=== PATIENT | male | born 1955 | race African-American/Black ===

== ENCOUNTER 2023-01-09 14:34 | Emergency (ER) | payer MEDICARE, MEDICAID, SELFPAY ==
--- NOTE | ~2023-01-09 | XR_ITS ---
EXAMINATION: XR CHEST CLINICAL INFORMATION: Shortness of breath COMPARISON: None available. TECHNIQUE: 2 views of the chest were obtained. FINDINGS: The cardiac silhouette does not appear enlarged. Hilar and mediastinal contours are unremarkable. The lungs are clear. No pleural effusion or pneumothorax. Bony structures are unremarkable. XR/XR chest 2V IMPRESSION: No evidence for acute disease in the chest.
--- NOTE | 2023-01-09 14:41 | ED_ITS ---
HPI - SOB/Dyspnea General Chief Complaint: Extremity Problem Stated Complaint: swelling in both feet, congested Time Seen by Provider: 01/09/23 16:39 Source: patient and RN notes reviewed Mode of arrival: ambulatory Limitations: no limitations History of Present Illness HPI Narrative: This is a 67-year-old male, with a past medical history of hypertension with cardiac stent, presenting to the emergency department for evaluation of bilateral lower extremity swelling for the last week. He states that he previously was on diuretics which he discontinued 1 year ago as he thought he did not need them anymore. He states that typically the swelling in his legs improved at bedtime however he has noticed that this has not resolved. He admits to having some shortness of breath upon ambulation. He has a history of chronic bronchitis has a chronic cough, reports that this has been unchanged. Patient denies any fevers, chills, chest pain, palpitations, abdominal pain, nausea, vomiting, or diarrhea. He has no known history of congestive heart failure. He has a history of IV drug use however has not used drugs in over 1 year. No history of blood clots. No recent hospitalizations, travel, cancer history. No other complaints or concerns this time. MD elicited complaint: shortness of breath Onset (ago): week(s) Context: occurred during exertion Timing: constant Severity: moderate Exacerbating factors: exertion Relieving factors: nothing Known history of: COPD Associated symptoms: denies other symptoms Treatment prior to arrival: none Related Data Allergies Allergy/AdvReac Type Severity Reaction Status Date / Time No Known Allergies Allergy Verified 01/09/23 14:43 Review of Systems Review of Systems: Constitutional: No Weight loss, No Fever, No Chills, No Night Sweats, No Fatigue, No Malaise ENT/Mouth: No Hearing loss, No Ear Pain, No Nasal Congestion, No Sinus Pain, No Hoarseness, No sore throat, No Rhinorrhea, No Swallowing Difficulty Eyes: No Eye Pain, No Swelling, No Redness, No Foreign Body, No Discharge, No Vision Changes Cardiovascular: No Chest Pain, No SOB, + Dyspnea on Exertion, No Orthopnea, No Edema, No Palpitations Respiratory: No Cough, No Sputum, No Wheezing, No Smoke Exposure, No Dyspnea Gastrointestinal: No Nausea, No Vomiting, No Diarrhea, No Constipation, No Abdominal pain, No Hematochezia, No Melena Genitourinary: No irregular bleeding, No Dysuria, No Urinary Frequency, No Hematuria, No Urinary Incontinence/retention, No Urgency, No Flank Pain, No Urinary Flow Changes, No Hesitancy Musculoskeletal: No joint pain, No Myalgias, No Joint Swelling Skin: No Skin Lesions, No rash Neuro: No Weakness, No Numbness, No Paresthesias, No Loss of Consciousness, No Dizziness, No Headache Psych: No Anxiety/Panic, No Depression, No SI/HI/AH/VH, No Social Issues, Heme/Lymph: No Bruising, No Bleeding,No Lymphadenopathy Endocrine: No Polyuria, No Polydipsia, No Temperature Intolerance Yes all other systems are reviewed and are negative Constitutional: Constitutional: Reports as per [facility] Social History Social History Advance Directives: Yes Advance Directives on File: No Physical Exam Vital Signs: Vital Signs: Last Vital Signs Temp 98.6 F 01/09/23 17:52 Pulse 59 01/09/23 17:52 Resp 12 01/09/23 17:52 BP 133/87 01/09/23 17:52 Pulse Ox 98 01/09/23 17:52 O2 Del Method Room Air 01/09/23 17:52 BMI result Body Mass Index 27.9 Const: General: cooperative, comfortable and no acute distress [place] ation/consciousness: patient oriented x3 Limitations: no limitations HEENT: Head: Yes normal to inspection, Yes normocephalic and Yes atraumatic Ears: hearing grossly normal bilaterally General nose exam: Normal external nose present Face and sinus: Yes normal facial exam Mouth: Normal oral and palatal mucosa present, oropharynx normal and moist mucous membranes Throat: Yes posterior oropharynx normal Eyes: General: appearance normal, both eyes and all related structures Eyelids: Yes eyelids normal Conjunctivae: conjunctivae normal Sclerae: sclerae normal Pupils: Equal, round and reactive pupils present EOM: EOMs intact bilaterally Neck: Neck: Yes normal visual inspection, Yes full ROM and Yes no lymphadenopathy Lymphatic: no lymphadenopathy noted Chest: Chest palpation & inspection: normal inspection of the chest Resp: Effort & Inspection: normal respiratory effort and able to speak in complete sentences Auscultation: clear to auscultation bilaterally, no crackles, no rales, no rhonchi and no wheezes Cardio: Rate: regular rate Rhythm: regular rhythm Heart sounds: S1 normal heart sound present and S2 normal heart sound present GI: Inspection: Yes normal to inspection Skin: General skin exam: no rashes or lesions noted Trauma: no lacerations or abrasions Wounds: no wounds Neuro: General: patient oriented x3 and moves all extremities Cranial nerves: Yes Equal, round and reactive pupils present Extrem: Other: Bilateral 2+ pitting edema noted. No erythema. No calf tenderness, no palpable cords. General: Yes normal to inspection Right upper extremity: normal to inspection Left upper extremity: normal to inspection Right lower extremity: normal to inspection Left lower extremity: normal to inspection Course Course Course Narrative: This is a rapid medical exam. Deferred additional HPI, ROS, PE to primary provider. 67 yo male with history of CAD s/p stents, HTN here with complaints of shortness of breath, bilateral leg swelling x several weeks. No chest pain, fever. Cough with clear sputum. +smoker Bilateral LE pitting edema R/L, mild exp wheezing Will need labs, EKG, CXR VSS Reevaluation(s) Reevaluation #1: Patient has no leukocytosis, EKG reassuring,, BMP negative, chest x-ray unremarkable. Advised patient to follow-up with primary care physician to start back on diuretics and fluid. Will place patient's legs and Flo wraps to help with swelling, educated the importance of keeping legs elevated as much as possible to help reduce swelling. Given return precautions any new or worsening symptoms occur. Patient understands and agrees with plan. Vital signs have remained stable throughout his entire stay. Oxygen saturation 98% room air. He has no chest pressure pain. Patient stable for discharge. Time: 18:16 Medical Decision Making Medical Decision Making [facility] Narrative: This is a 67-year-old male, with a past medical history of cardiac stent and hypertension, presenting to the emergency department for evaluation of lower extremity swelling for the last week. He has a history of this and was previously on diuretics unsure of the name but he discontinued this about 1 year ago. On examination, patient has 2+ pitting edema noted bilaterally with no calf tenderness. Patient has no Tonio is, BMP within normal limits, creatinine 1.55 of her no previous creatinine to compare to. Chest x-ray is unremarkable. EKG normal sinus rhythm with occasional PVCs. No ST elevation or depression. Plan: Check labs, EKG Differential Diagnosis Differential Diagnoses: The differential diagnosis associated with the presentation includes Peripheral edema, CHF, ACS-less likely, DVT less likely Admission/Observation Consideration of admission/observation: Escalation of care including admission/observation considered Lab Data MDM Lab Attestation statement: I reviewed the patient's lab results. 01/09/23 14:55 01/09/23 14:55 Labs: Lab Results 01/09/23 01/09/23 01/09/23 Range/Units 14:55 14:55 14:55 WBC 6.7 (4.8-10.8) X10*3/uL RBC 5.47 (4.60-5.80) X10*6/uL Hgb 15.2 (14.0-18.0) g/dl Hct 45.5 (42.0-52.0) % MCV 83.2 (80.0-98.0) fL MCH 27.8 (27.0-33.0) pg MCHC 33.4 (31.0-36.0) g/dl RDW 13.2 (11.0-16.0) % Plt Count 217 (160-400) X10*3/uL MPV 10.2 (9.4-12.4) fL Immature Gran % (Auto) 0.3 (0.0-0.4) % Neut % (Auto) 39.9 L (45-73) % Lymph % (Auto) 42.9 H (20-40) % Hettinger % (Auto) 12.0 H (2-11) % Eos % (Auto) 3.8 (0-4) % Baso % (Auto) 1.1 (0-2) % Lymph # (Auto) 2.9 (1.2-4.9) X10*3/uL Hettinger # (Auto) 0.8 (0.1-1.2) X10*3/uL Eos # (Auto) 0.3 (0.0-0.4) X10*3/uL Baso # (Auto) 0.1 (0.0-0.2) X10*3/uL Abs Immat Gran (auto) 0.02 (0.00-0.03) X10*3/uL Absolute Neuts (auto) 2.7 (2.0-8.3) x10*3/uL Absolute Nucleated RBC 0.000 (0.0-0.012) X10*3/uL Nucleated RBC % (auto) 0.0 (0.0-0.2) /100WBC PT (10.0-13.1) SEC INR (0.9-1.1) Sodium 140 (135-145) mmol/L Potassium 4.1 (3.3-5.1) mmol/L Chloride 104 (96-108) mmol/L Carbon Dioxide 26 (22-29) mmol/L Anion Gap 14 (12-20) BUN 10 (9-16) mg/dL Creatinine 1.55 H (0.5-1.4) mg/dL Estim Creat Clear Calc 45.8 Estimated GFR 45 Random Glucose 98 (60-115) mg/dL Calcium 9.6 (8.4-10.2) mg/dL Magnesium 2.2 (1.6-2.6) mg/dL Total Bilirubin 0.5 (0.0-1.0) mg/dL Direct Bilirubin 0.1 (0.0-0.5) mg/dL AST 14 (5-37) U/L ALT 14 (0-40) U/L Alkaline Phosphatase 125 H (39-117) U/L Troponin I High Sens < 2.7 (<3.5-35.0) ng/L B-Natriuretic Peptide (<100) pg/mL Total Protein 7.4 (6.5-8.0) g/dL Albumin 4.1 (3.5-5.0) g/dL 01/09/23 01/09/23 Range/Units 14:55 14:55 WBC (4.8-10.8) X10*3/uL RBC (4.60-5.80) X10*6/uL Hgb (14.0-18.0) g/dl Hct (42.0-52.0) % MCV (80.0-98.0) fL MCH (27.0-33.0) pg MCHC (31.0-36.0) g/dl RDW (11.0-16.0) % Plt Count (160-400) X10*3/uL MPV (9.4-12.4) fL Immature Gran % (Auto) (0.0-0.4) % Neut % (Auto) (45-73) % Lymph % (Auto) (20-40) % Hettinger % (Auto) (2-11) % Eos % (Auto) (0-4) % Baso % (Auto) (0-2) % Lymph # (Auto) (1.2-4.9) X10*3/uL Hetting[place] # (Auto) (0.1-1.2) X10*3/uL Eos # (Auto) (0.0-0.4) X10*3/uL Baso # (Auto) (0.0-0.2) X10*3/uL Abs Immat Gran (auto) (0.00-0.03) X10*3/uL Absolute Neuts (auto) (2.0-8.3) x10*3/uL Absolute Nucleated RBC (0.0-0.012) X10*3/uL Nucleated RBC % (auto) (0.0-0.2) /100WBC PT 13.7 H (10.0-13.1) SEC INR 1.2 H (0.9-1.1) Sodium (135-145) mmol/L Potassium (3.3-5.1) mmol/L Chloride (96-108) mmol/L Carbon Dioxide (22-29) mmol/L Anion Gap (12-20) BUN (9-16) mg/dL Creatinine (0.5-1.4) mg/dL Estim Creat Clear Calc Estimated GFR Random Glucose (60-115) mg/dL Calcium (8.4-10.2) mg/dL Magnesium (1.6-2.6) mg/dL Total Bilirubin (0.0-1.0) mg/dL Direct Bilirubin (0.0-0.5) mg/dL AST (5-37) U/L ALT (0-40) U/L Alkaline Phosphatase (39-117) U/L Troponin I High Sens (<3.5-35.0) ng/L B-Natriuretic Peptide < 10 (<100) pg/mL Total Protein (6.5-8.0) g/dL Albumin (3.5-5.0) g/dL Radiology Impression Discussion of test interpretation with radiology: I have reviewed the radiologist's reading. External Record Review External record reviewed: Inpatient record, Office record, Outpatient record, Prior outpatient labs, Prior outpatient radiology, Primary care record and [facility] ED record Discharge Plan Discharge Clinical Impression: Lower extremity edema Patient Disposition: Home, Self-Care Instructions: Edema (ED) Additional Instructions: Your workup was reassuring today. Please follow-up with your primary care physician regarding this visit. Use compression socks and elevate your legs as much as possible. If any new or worsening symptoms occur, including chest pain, worsening shortness of breath, calf pain or worsening swelling, please return for re- evaluation.
[2023-01-09 14:42] VITALS: BP 152/88; PULSE 61; RESP 16; TEMP 36.8; O2SAT 98; BMI 27.9
--- NOTE | 2023-01-09 14:43 | ECG_ITS ---
Test Reason : SOB Blood Pressure : / mmHG Vent. Rate : 064 BPM Atrial Rate : 064 BPM P-R Int : 176 ms QRS Dur : 088 ms QT Int : 398 ms P-R-T Axes : 033 010 026 degrees QTc Int : 410 ms Sinus rhythm with occasional Premature ventricular complexes Otherwise normal ECG No previous ECGs available Referred By: Cady Mckeon Electronically Signed By:MAME TUCKER MD
[2023-01-09 15:01] LABS: MANUAL DIFF FLAG NO
[2023-01-09 15:02] LABS: Basophils Absolute Auto 0.1 X10*3/uL (0.0-0.2); Basophils Percent Auto 1.1 % (0-2); Eosinophils Absolute Auto 0.3 X10*3/uL (0.0-0.4); Eosinophils Percent Auto 3.8 % (0-4); Hematocrit 45.5 % (42.0-52.0); Hemoglobin 15.2 g/dl (14.0-18.0); Imm Gran Abs Auto 0.02 X10*3/uL (0.00-0.03); Imm Gran Pct Auto 0.3 % (0.0-0.4); Lymphocytes Absolute Auto 2.9 X10*3/uL (1.2-4.9); Lymphocytes Percent Auto 42.9 % (20-40); Mean Corpuscular HGB Conc 33.4 g/dl (31.0-36.0); Mean Corpuscular Hemoglobin 27.8 pg (27.0-33.0); Mean Corpuscular Volume 83.2 fL (80.0-98.0); Mean Platelet Volume 10.2 fL (9.4-12.4); Monocytes Absolute Auto 0.8 X10*3/uL (0.1-1.2); Neutrophils Absolute Auto 2.7 x10*3/uL (2.0-8.3); Neutrophils Percent Auto 39.9 % (45-73); Platelet Count 217 X10*3/uL (160-400); Red Blood Count 5.47 X10*6/uL (4.60-5.80); Red Cell Distribution Width 13.2 % (11.0-16.0); White Blood Count 6.7 X10*3/uL (4.8-10.8)
[2023-01-09 15:15] LABS: INTERNATIONAL NORM RATIO 1.2 (0.9-1.1); Prothrombin Time 13.7 SEC (10.0-13.1)
[2023-01-09 15:28] LABS: Alanine Aminotransferase 14 U/L (0-40); Albumin Level 4.1 g/dL (3.5-5.0); Alkaline Phosphatase 125 U/L (39-117); Anion Gap 14 (12-20); Aspartate Amino Transferase 14 U/L (5-37); Bilirubin Direct 0.1 mg/dL (0.0-0.5); Bilirubin Total 0.5 mg/dL (0.0-1.0); Blood Urea Nitrogen 10 mg/dL (9-16); Calcium 9.6 mg/dL (8.4-10.2); Carbon Dioxide 26 mmol/L (22-29); Chloride 104 mmol/L (96-108); Creatinine Clr Calc Pharmacy 45.8; Estimated Glomerular Filt Rate 45; Glucose Random 98 mg/dL (60-115); Magnesium 2.2 mg/dL (1.6-2.6); Potassium 4.1 mmol/L (3.3-5.1); Sodium 140 mmol/L (135-145); Total Protein 7.4 g/dL (6.5-8.0)
[2023-01-09 15:34] LABS: B Type Natriuretic Peptide < 10 pg/mL (<100)
[2023-01-09 15:42] LABS: Troponin-I High Sensitivity < 2.7 ng/L (<3.5-35.0)
[2023-01-09 16:52] VITALS: BP 148/82; PULSE 58; RESP 20; TEMP 36.6; O2SAT 99
[2023-01-09 17:52] VITALS: BP 133/87; PULSE 59; RESP 12; TEMP 37; O2SAT 98
== END 2023-01-09 18:43 | disposition home or self-care (01) ==
PROVIDERS: Nurse Practitioner Family; Emergency Provider Student in an Organized Health Care Education/Training Program; PCP Family Medicine
DX: R06.02 Shortness of breath (principal); R60.0 Localized edema; R94.31 Abnormal electrocardiogram [ECG] [EKG]; Z79.899 Other long term (current) drug therapy
CPT/HCPCS: 36415; 71046; 80048; 80076; 83735; 83880; 84484; 85025; 85610; 93005; 99283; 99284

== ENCOUNTER 2023-08-28 09:20 | Outpatient (AMB) | payer MEDICARE, MEDICAID, SELFPAY ==
[2023-08-28 09:24] VITALS: BP 110/70; PULSE 63; O2SAT 98; BMI 25.4
--- NOTE | 2023-08-28 09:24 | A.OFFVIS_ITS ---
Intake Vital Signs 08/28/23 09:24 Height 5 ft 7 in Weight 162 lb 0.636 oz BMI 25.4 BP 110/70 Blood Pressure Location Lt brachial Position Sitting Pulse 63 Pulse Source Pulse Oximeter Pulse Oximetry (%) 98 Oxygen Delivery Method Room Air Intake Visit Reasons: mild chronic obstructive pulmonary disease Intake Note: pt is here as a new patient, he is feeling good, cutting down on smoking Ironing Pleater Required: No Allergies No Known Allergies Allergy (Verified 08/28/23 09:26) HPI mild chronic obstructive pulmonary disease HPI Details 68-year-old gentleman, active 30+ pack-y ear smoker with underlying COPD of unclear severity currently on Anoro and albuterol MDI referred for pulmonary follow-up. Patient complains of dyspnea on exertion when walking uphill or with stairs, or with prolonged walking on level ground. He denies cough, wheezing, sputum production. He does have underlying lower extremity edema at this time controlled on hydrochlorothiazide. And AFib on Eliquis and Toprol XL. Patient denies family history of lung disease. He denies history of exposure to industrial dusts. His CT scan from April of 2023 demonstrates stable 4 mm and under pulmonary nodules. [facility] Social History (Updated 08/28/23 @ 09:28 by Brenna Walters Will) Patient Tobacco Use Status: Current everyday Tobacco user Cigarettes Per Day: 3 Review of Systems Const Denies daytime sleepiness, Denies excessive sweating, Denies fatigue, Denies fever(s), Denies lethargy, Denies malaise, Denies night sweats, Denies snoring and Denies weight loss Eyes Denies blurry vision and Denies itchy eyes ENT Denies nasal congestion, Denies post nasal drip, Denies sinus pain, Denies sinus pressure and Denies other ( Thrush) Card Denies chest pain, Denies pedal edema, Denies dyspnea, Reports dyspnea on exertion, Denies orthopnea and Denies paroxysmal nocturnal dyspnea Resp Denies cough, Denies hemoptysis, Denies excessive phlegm production, Denies dyspnea, Reports dyspnea on exertion, Denies snoring and Denies wheezing GI Denies abdominal pain and Denies heartburn Musc Denies myalgias, Denies arthralgias and Denies joint swelling Skin/Breast Denies rash Neuro Denies memory loss and Denies seizure-like activity Psych Denies abnormal sleep pattern, Denies anxiety and Denies memory loss Endo Denies excessive sweating, Denies fatigue and Denies heat intolerance Jerry/Lymph Denies easy bruising Aller/Immun Denies itchy eyes, Denies seasonal rhinorrhea and Denies wheezing Physical Exam Vital Signs: Last Vital Signs Pulse 63 08/28/23 09:24 BP 110/70 08/28/23 09:24 Pulse Ox 98 08/28/23 09:24 Oxygen Delivery Method Room Air 08/28/23 09:24 BMI result Body Mass Index 25.4 Const General: no acute distress and alert Nutritional Appearance: not obese Orientation/consciousness: Other orientation findings ( oriented) HEENT Head: Yes atraumatic Eyes General: appearance normal, both eyes and all related structures Sclerae: sclerae normal EOM: EOMs intact bilaterally Neck Neck: Yes supple Lymphatic: no lymphadenopathy noted Resp Effort & Inspection: normal respiratory effort and no use of accessory muscles Auscultation: clear to auscultation bilaterally Cardio Rate: regular rate Rhythm: regular rhythm Heart sounds: no gallops, no murmurs and no rubs Skin General skin exam: other ( warm) Extrem General: No clubbing, No cyanosis and No edema Assessment & Plan Assessment & Plan (1) Dyspnea on exertion: Code(s): R06.09 - Other forms of dyspnea Plan: Likely multifactorial with contribution from underlying pulmonary and cardiac etiologies. Patient states that he did have an echocardiogram within last 3-4 months. Will request results. (2) Personal history of nicotine dependence: Code(s): Z87.891 - Personal history of nicotine dependence Plan: Patient has lost lung cancer screening CT chest was in the summer of 2022. Will require follow-up CT chest in the summer. (3) COPD (chronic obstructive pulmonary disease): Code(s): J44.9 - Chronic obstructive pulmonary disease, unspecified Plan: Unclear severity. Will obtain full PFT at this time on Anoro and albuterol MDI. Will continue until results of PFT are available. Orders: Orders PFT pulmonary function test Today J44.9 - Chronic obstructive pulmonary disease, unspecified Coding Level of Care Code New Pt Level 4 (90225) Diagnoses Dyspnea on exertion R06.09 Personal history of nicotine dependence Z87.891 COPD (chronic obstructive pulmonary disease) J44.9
== END 2023-08-28 09:35 | disposition home or self-care (01) ==
PROVIDERS: PCP Family Medicine; Visit Provider Internal Medicine Pulmonary Disease
DX: R06.09 Other forms of dyspnea (principal); Z87.891 Personal history of nicotine dependence; J44.9 Chronic obstructive pulmonary disease, unspecified
CPT/HCPCS: 99204

== ENCOUNTER → 2023-08-28 09:20 | Outpatient (BNVA) | payer MEDICARE, MEDICAID, SELFPAY | PROVIDERS: PCP Family Medicine; Visit Provider Internal Medicine Pulmonary Disease | DX: J44.9 Chronic obstructive pulmonary disease, unspecified (principal); R06.09 Other forms of dyspnea; Z87.891 Personal history of nicotine dependence | CPT/HCPCS: 99202 ==

== ENCOUNTER 2023-09-25 09:43 | Outpatient (REF) | payer MEDICARE, MEDICAID, SELFPAY ==
--- NOTE | 2023-09-25 11:29 | PFT_ITS ---
Flows: FEV1: 93 % of predicted at 2.31 L FVC: 102 % of predicted at 3.30 L FEV1/FVC: 70 % Bronchodilator response: Present in small to medium airways only. Volumes: No lung volume measurements available secondary to a technical issue. Diffusion capacity: Normal Impression: Mild obstructive ventilatory defect with bronchodilator response in small to medium airways only. No lung volume measurements available secondary to a technical issue. MTDD
[2023-09-25 11:46] VITALS: PULSE 70; RESP 16; O2SAT 98
== END 2023-09-25 09:44 | disposition home or self-care (01) ==
LOC: HO.RESP 09:43
PROVIDERS: Visit Provider Internal Medicine Pulmonary Disease
DX: J44.9 Chronic obstructive pulmonary disease, unspecified (principal)
CPT/HCPCS: 94010; 94640; 94727; 94729

== ENCOUNTER → 2023-09-25 11:29 | Outpatient (BNV) | payer MEDICARE, MEDICAID, SELFPAY | PROVIDERS: Visit Provider Internal Medicine Pulmonary Disease | DX: J44.9 Chronic obstructive pulmonary disease, unspecified (principal) | CPT/HCPCS: 94060; 94729 ==

== ENCOUNTER 2023-10-09 09:30 | Outpatient (AMB) | payer MEDICARE, MEDICAID, SELFPAY ==
[2023-10-09 09:32] VITALS: BP 117/62; PULSE 73; O2SAT 96; BMI 26.2
--- NOTE | 2023-10-09 09:32 | A.OFFVIS_ITS ---
Intake Vital Signs 10/09/23 09:32 Height 5 ft 7 in Weight 167 lb 8.821 oz BMI 26.2 BP 117/62 Blood Pressure Location Lt brachial Position Sitting Pulse 73 Pulse Source Doppler Pulse Oximetry (%) 96 Oxygen Delivery Method Room Air Intake Visit Reasons: mild chronic obstructive pulmonary disease Allergies No Known Allergies Allergy (Verified 08/28/23 09:26) HPI mild chronic obstructive pulmonary disease HPI Details 68-year-old gentleman, active 30+ pack-y ear smoker now followed for mild COPD and pulmonary nodules. Patient symptoms are well controlled on Anoro and albuterol MDI. He denies recent exacerbations. [facility] Social History Patient Tobacco Use Status: Current everyday Tobacco user Cigarettes Per Day: 3 Review of Systems Const Denies daytime sleepiness, Denies excessive sweating, Denies fatigue, Denies fever(s), Denies lethargy, Denies malaise, Denies night sweats, Denies snoring and Denies weight loss Eyes Denies blurry vision and Denies itchy eyes ENT Denies nasal congestion, Denies post nasal drip, Denies sinus pain, Denies sinus pressure and Denies other ( Thrush) Card Denies chest pain, Denies pedal edema, Denies dyspnea, Denies orthopnea and Denies paroxysmal nocturnal dyspnea Resp Denies cough, Denies hemoptysis, Denies excessive phlegm production, Denies dyspnea, Denies snoring and Denies wheezing GI Denies abdominal pain and Denies heartburn Musc Denies myalgias, Denies arthralgias and Denies joint swelling Skin/Breast Denies rash Neuro Denies memory loss and Denies seizure-like activity Psych Denies abnormal sleep pattern, Denies anxiety and Denies memory loss Endo Denies excessive sweating, Denies fatigue and Denies heat intolerance Jerry/Lymph Denies easy bruising Aller/Immun Denies itchy eyes, Denies seasonal rhinorrhea and Denies wheezing Physical Exam Vital Signs: Last Vital Signs Pulse 73 10/09/23 09:32 BP 117/62 10/09/23 09:32 Pulse Ox 96 10/09/23 09:32 Oxygen Delivery Method Room Air 10/09/23 09:32 BMI result Body Mass Index 26.2 Const General: no acute distress and alert Nutritional Appearance: not obese Orientation/consciousness: Other orientation findings ( oriented) HEENT Head: Yes atraumatic Eyes General: appearance normal, both eyes and all related structures Sclerae: sclerae normal EOM: EOMs intact bilaterally Neck Neck: Yes supple Lymphatic: no lymphadenopathy noted Resp Effort & Inspection: normal respiratory effort and no use of accessory muscles Auscultation: clear to auscultation bilaterally Cardio Rate: regular rate Rhythm: regular rhythm Heart sounds: no gallops, no murmurs and no rubs Skin General skin exam: other ( warm) Extrem General: No clubbing, No cyanosis and No edema Assessment & Plan Assessment & Plan (1) COPD (chronic obstructive pulmonary disease): Code(s): J44.9 - Chronic obstructive pulmonary disease, unspecified Plan: Results of pulmonary function test reviewed. Underlying mild COPD now well controlled on Anoro and albuterol MDI. Continue current regimen. (2) Personal history of nicotine dependence: Code(s): Z87.891 - Personal history of nicotine dependence Plan: Follow-up lung cancer screening CT chest is scheduled for April of 2024. Orders: Orders CT lung screening 05/10/24 Z87.891 - Personal history of nicotine dependence Coding Level of Care Code Est Pt Level 4 (35573) Diagnoses COPD (chronic obstructive pulmonary disease) J44.9 Personal history of nicotine dependence Z87.891
== END 2023-10-09 09:47 | disposition home or self-care (01) ==
PROVIDERS: PCP Family Medicine; Visit Provider Internal Medicine Pulmonary Disease
DX: J44.9 Chronic obstructive pulmonary disease, unspecified (principal); Z87.891 Personal history of nicotine dependence
CPT/HCPCS: 99214

== ENCOUNTER → 2023-10-09 09:30 | Outpatient (BNVA) | payer MEDICARE, MEDICAID, SELFPAY | PROVIDERS: PCP Family Medicine; Visit Provider Internal Medicine Pulmonary Disease | DX: J44.9 Chronic obstructive pulmonary disease, unspecified (principal); Z87.891 Personal history of nicotine dependence | CPT/HCPCS: 99212 ==

== ENCOUNTER 2024-05-26 12:47 | Outpatient (REF) | payer MEDICARE, MEDICAID, SELFPAY | END 2024-05-26 12:48 | disposition home or self-care (01) | LOC: HO.CT 12:47 | PROVIDERS: PCP Family Medicine; Visit Provider Internal Medicine Pulmonary Disease | DX: Z12.2 Encounter for screening for malignant neoplasm of respiratory organs (principal); Z87.891 Personal history of nicotine dependence | CPT/HCPCS: 71271 ==

== ENCOUNTER → 2024-05-26 12:48 | Outpatient (BNV) | payer MEDICARE, MEDICAID, SELFPAY | PROVIDERS: PCP Family Medicine; Visit Provider Radiology Diagnostic Radiology | DX: Z12.2 Encounter for screening for malignant neoplasm of respiratory organs (principal); F17.210 Nicotine dependence, cigarettes, uncomplicated | CPT/HCPCS: 71271 ==

== ENCOUNTER 2024-06-16 13:24 | Outpatient (AMB) | payer MEDICARE, MEDICAID, SELFPAY ==
[2024-06-16 13:30] VITALS: BP 128/62; PULSE 62; O2SAT 96; BMI 25.5
--- NOTE | 2024-06-16 13:30 | MHC.OFFVIS ---
Vital Signs 06/16/24 13:30 Height 5 ft 7 in Weight 163 lb 2.273 oz BMI 25.5 BP 128/62 Blood Pressure Location Rt brachial Position Sitting Pulse 62 Pulse Source Doppler Pulse Oximetry (%) 96 Oxygen Delivery Method Room Air Intake Visit Reasons: COPD Allergies No Known Allergies Allergy (Verified 08/28/23 09:26) HPI HPI COPD: Details: 69-year-old gentleman, active 30+ pack-year smoker now followed for mild COPD and pulmonary nodules. Patient symptoms are well controlled on Anoro and albuterol MDI. He denies recent exacerbations. His lung cancer screening CT chest results are not available, but on my review left upper lobe 7 mm nodule. [facility] Social History Patient Tobacco Use Status: Current everyday Tobacco user Cigarettes Per Day: 3 Review of Systems Const Denies daytime sleepiness, Denies excessive sweating, Denies fatigue, Denies fever(s), Denies lethargy, Denies malaise, Denies night sweats, Denies snoring and Denies weight loss Eyes Denies blurry vision and Denies itchy eyes ENT Denies nasal congestion, Denies post nasal drip, Denies sinus pain, Denies sinus pressure and Denies other ( Thrush) Card Denies chest pain, Denies pedal edema, Denies dyspnea, Denies orthopnea and Denies paroxysmal nocturnal dyspnea Resp Denies cough, Denies hemoptysis, Denies excessive phlegm production, Denies dyspnea, Denies snoring and Denies wheezing GI Denies abdominal pain and Denies heartburn Musc Denies myalgias, Denies arthralgias and Denies joint swelling Skin/Breast Denies rash Neuro Denies memory loss and Denies seizure-like activity Psych Denies abnormal sleep pattern, Denies anxiety and Denies memory loss Endo Denies excessive sweating, Denies fatigue and Denies heat intolerance Jerry/Lymph Denies easy bruising Aller/Immun Denies itchy eyes, Denies seasonal rhinorrhea and Denies wheezing Physical Exam Vital Signs: Last Vital Signs Pulse 62 06/16/24 13:30 BP 128/62 06/16/24 13:30 Pulse Ox 96 06/16/24 13:30 Oxygen Delivery Method Room Air 06/16/24 13:30 BMI result Body Mass Index 25.5 Const General: no acute distress and alert Nutritional Appearance: not obese Orientation/consciousness: Other orientation findings ( oriented) HEENT Head: Yes atraumatic Eyes General: appearance normal, both eyes and all related structures Sclerae: sclerae normal EOM: EOMs intact bilaterally Neck Neck: Yes supple Lymphatic: no lymphadenopathy noted Resp Effort & Inspection: normal respiratory effort and no use of accessory muscles Auscultation: clear to auscultation bilaterally Cardio Rate: regular rate Rhythm: regular rhythm Heart sounds: no gallops, no murmurs and no rubs Skin General skin exam: other ( warm) Extrem General: No clubbing, No cyanosis and No edema Assessment & Plan Assessment & Plan (1) COPD (chronic obstructive pulmonary disease): Code(s): J44.9 - Chronic obstructive pulmonary disease, unspecified Category: Medical Plan: Well controlled on Anoro and albuterol MDI. Continue current regimen. (2) Pulmonary nodule: Code(s): R91.1 - Solitary pulmonary nodule Category: Medical Plan: Results of lung cancer screening CT chest not available for this visit. On my review left upper lobe 7 mm nodule. Will repeat CT chest in 6 months. Orders: Orders CT chest wo IV con 12/04/24 R91.1 - Solitary pulmonary nodule Coding Level of Care Code Est Pt Level 4 (39842) Complex EM visit Add On G2211 Diagnoses COPD (chronic obstructive pulmonary disease) J44.9 Pulmonary nodule R91.1
== END 2024-06-16 13:45 | disposition home or self-care (01) ==
PROVIDERS: PCP Family Medicine; Visit Provider Internal Medicine Pulmonary Disease
DX: J44.9 Chronic obstructive pulmonary disease, unspecified (principal); R91.1 Solitary pulmonary nodule
CPT/HCPCS: 99214; G2211

== ENCOUNTER → 2024-06-16 13:24 | Outpatient (BNVA) | payer MEDICARE, MEDICAID, SELFPAY | PROVIDERS: PCP Family Medicine; Visit Provider Internal Medicine Pulmonary Disease | DX: J44.9 Chronic obstructive pulmonary disease, unspecified (principal); R91.1 Solitary pulmonary nodule | CPT/HCPCS: 99212 ==

== ENCOUNTER 2024-11-16 09:34 | Outpatient (REF) | payer MEDICARE, MEDICAID, SELFPAY ==
--- OUTSIDE RECORDS SUMMARY | 2024-11-16 10:48 | XMS_ITS | Clinical Summary ---
Author Organization [employer] Address [address] [place] [address] 7 [place] [address] Care Team Providers Care Microsoft Dynamics Manager Architect Name Role Phone Unavailable Primary Care Provider Unavailabl e Social History Tobacco Use Types Packs/Day Years Used Date Smoking Tobacco: Never Assessed Sex and Gender Information Value Date Recorded Sex Assigned at Male 12/15/2023 3:08 PM EDT Legal Sex Male 3:07 PM EDT Gender Identity Male 12/15/2023 3:08 PM EDT Sexual Orientation Not on file Plan of Treatment Health Maintenance Due Date Last Done Comments CT Colonography 1953 Colonoscopy 1953 Colorectal Cancer Screening 1953 Depression Screening 1953 FIT DNA/Cologuard 1953 FIT 1953 FOBT 1953 Lipid Panel 1953 SDOH Screening 1953 Sigmoidoscopy 1953 Alcohol/Substance Use Screening 1965 Tobacco Screening 1965 Hepatitis C Screening 1971 DTaP/Tdap/Td Vaccines (1 - Tdap) 1972 Pneumococcal Vaccine: 50+ Ye ars (1 of 1 - PCV) 2003 Zoster Vaccines (1 of 2) 2003 COVID-19 Vaccine ( - 2023-2 5 season) 2024 Influenza Vaccine (#1) 2024 RSV Patients and Pa tients Aged 60 years or older (1 - 1-dose 75+ series) 2028 HIB Vaccines Aged Out No longer eligi ble based on patient's age to complete this topic HPV Vaccines Aged Out No longer eligi ble based on patient's age to complete this topic Hepatitis A Vaccines Aged Out No long er eligible based on patient's age to complete this topic Hepatitis B Vaccines Aged Out No long er eligible based on patient's age to complete this topic IPV Vaccines Aged Out No longer eligi ble based on patient's age to complete this topic Meningococcal Vaccine Aged Out No anastacia eva eligible based on patient's age to complete this topic RSV under 20 months Aged Out No longe r eligible based on patient's age to complete this topic Rotavirus Vaccines Aged Out No longer eligible based on patient's age to complete this topic
[2024-11-16 11:34] LABS: Prostate Specific Antigen 7.88 ng/mL (<0.05-4.0)
[2024-11-16 11:49] LABS: HIV AB/AG Nonreactive (Nonreactive); HIV Num 1 0.05 S/CO (0.00-0.99); Syphilis Screen Nonreactive (Nonreactive); ~HepC Num1 17.35 S/CO (0.00-0.79); ~Hepatitis C Antibody Reactive (Nonreactive)
== END 2024-11-16 09:35 | disposition home or self-care (01) ==
LOC: HO.LAB 09:34
PROVIDERS: PCP Family Medicine; Visit Provider Family Medicine
DX: Z11.3 Encounter for screening for infections with a predominantly sexual mode of transmission (principal); Z12.5 Encounter for screening for malignant neoplasm of prostate
CPT/HCPCS: 36415; 84153; 86780; 86803; 87389

== ENCOUNTER 2024-12-05 13:59 | Outpatient (REF) | payer MEDICARE, MEDICAID, SELFPAY ==
--- NOTE | ~2024-12-05 | CT_ITS ---
CLINICAL HISTORY: R91.1 - Solitary pulmonary nodule CT chest without contrast Comparison: CT/OH/SR - CT LUNG SCREENING - 05/26/24 12:54 EDT Findings: Normal heart size. Severe coronary artery calcifications. The visualized thyroid and mediastinum are unremarkable. There are multiple tiny pulmonary nodules without significant change. Visualized nodules include a 4 mm left lower lobe nodule on image 29, a 2 mm left upper lobe nodule on image 33, a 2 mm left upper lobe nodule on image 51 and a 2 mm right upper lobe nodule on image 57. There are no new pulmonary nodules. There is no consolidation or pleural effusion. There are mild emphysematous changes. The visualized upper abdomen is unremarkable. There are mild compression fractures at T5 and T6 without change. There is no acute displaced fracture. IMPRESSION: 1. There are multiple tiny pulmonary nodules without change. 2. There is mild pulmonary emphysema. This document has been electronically signed by: Radha Olmos MD on 12/06/2024 15:36:36
== END 2024-12-05 14:00 | disposition home or self-care (01) ==
LOC: HO.CT 13:59
PROVIDERS: PCP Family Medicine; Visit Provider Internal Medicine Pulmonary Disease
DX: R91.1 Solitary pulmonary nodule (principal)
CPT/HCPCS: 71250

== ENCOUNTER → 2024-12-05 14:02 | Outpatient (BNV) | payer MEDICARE, MEDICAID, SELFPAY | PROVIDERS: PCP Family Medicine; Visit Provider Radiology Diagnostic Radiology | DX: R91.1 Solitary pulmonary nodule (principal) | CPT/HCPCS: 71250 ==

== ENCOUNTER 2025-01-20 14:54 | Outpatient (REF) | payer MEDICARE, MEDICAID, SELFPAY ==
--- OUTSIDE RECORDS SUMMARY | 2025-01-20 15:08 | XMS_ITS | Clinical Summary ---
Author Organization [employer] Address [address] [place] [address] Care Team Providers Care Artificial Limb Fitter Name Role Phone Unavailable Primary Care Provider Unavailabl e Encounters Date Type Department Care Team Description 01/13/2025 Patient Outreach [facility] [address] [place] [id number] Truman Storm [facility] Supports 12/02/2024 Patient Outreach [address] [address] Kristin Allan [facility] Recovery Supports 11/25/2024 Patient Outreach [address] [address] Kristin Allan Recovery Supports 11/25/2024 Patient Outreach [address] [address] Quan Mclaughlin RC Recovery Supports from Last 3 Months Social History Tobacco Use Types Packs/Day Years [...] FIT 1953 FOBT 1953 Lipid Panel 1953 Sigmoidoscopy 1953 Alcohol/Substance Use Screening 1965 Tobacco Screening 1965 DTaP/Tdap/Td Vaccines (1 - Tdap) 1972 Pneumococcal Vaccine: 50+ Ye ars (1 of 1 - PCV) 2003 Zoster Vaccines (1 of 2) 2003 COVID-19 Vaccine ( - 2023-2 5 season) 2024 Influenza Vaccine (Season Ended) 2025 RSV Patients and Pa tients Aged 60 [...] patient's age to complete this topic Meningococcal B Vaccine Aged Out No l onger eligible based on patient's age to complete [...]
[2025-01-20 16:17] LABS: Anion Gap 13 (12-20); Blood Urea Nitrogen 13 mg/dL (9-16); Calcium 9.8 mg/dL (8.4-10.2); Carbon Dioxide 26 mmol/L (22-29); Chloride 105 mmol/L (96-108); Estimated Glomerular Filt Rate > 60; Glucose Random 84 mg/dL (60-115); Potassium 4.1 mmol/L (3.3-5.1); Sodium 140 mmol/L (135-145)
[2025-01-20 16:41] LABS: Prostate Specific Antigen 7.92 ng/mL (<0.05-4.0)
[2025-01-23 12:58] LABS: HCV Log PCR <1.18 NOT DETECTED Log IU/mL (NOT DETECTED); HepC Viral Load <15 NOT DETECTED IU/mL (NOT DETECTED)
== END 2025-01-20 14:55 | disposition home or self-care (01) ==
LOC: HO.LAB 14:54
PROVIDERS: PCP Family Medicine; Visit Provider Family Medicine
DX: R97.20 Elevated prostate specific antigen [PSA] (principal); R76.8 Other specified abnormal immunological findings in serum; E87.6 Hypokalemia; Z12.5 Encounter for screening for malignant neoplasm of prostate
CPT/HCPCS: 36415; 80048; 84153; 87522

== ENCOUNTER 2025-04-05 09:57 | Emergency (ER) | payer MEDICARE, MEDICAID, SELFPAY ==
--- NOTE | ~2025-04-05 | XR_ITS ---
EXAMINATION: XR LUMBOSACRAL SPINE CLINICAL INFORMATION: fall out of bed resulting in low back pain COMPARISON: None available. TECHNIQUE: Three views of the lumbosacral spine. FINDINGS: Mild atherosclerotic ossifications are present in the aorta. Mild degenerative changes are present in the right greater than left SI joints. There are 5 nonrib-bearing lumbar segments. L4-5 demonstrates grade 1 anterolisthesis and moderate disc space narrowing and facet sclerosis. L5-S1 demonstrates mild disc space narrowing and mild facet sclerosis. Vertebral body height and alignment is preserved otherwise. XR/XR lumbar spine 2-3V IMPRESSION: Grade 1 anterolisthesis at L4-5 with moderate degenerative disc disease and facet osteoarthritis. L5-S1 demonstrates mild degenerative disc disease and facet osteoarthritis. Electronically signed by: Rogelio Turcios MD 04/05/2025 10:43 AM EDT
--- NOTE | ~2025-04-05 | CT_ITS ---
EXAMINATION: CT CERVICAL SPINE WITHOUT CONTRAST CLINICAL INFORMATION: Status post fall. COMPARISON: None available. TECHNIQUE: Contiguous axial images through the cervical spine using 3 mm collimation with bone and soft tissue algorithm. Sagittal and coronal reformatted images acquired. DLP: 383.[address] examination was performed using dose optimization techniques as appropriate, variously including the following: *Automated exposure control *Adjustment of mA and/or kV according to patient size (this includes techniques or standardized protocols for targeted exams where dose is matched to indication/reason for exam; i.e. extremities or head) *Use of iterative reconstruction technique FINDINGS: Craniocervical junction is intact with normal alignment within the occipital condyles and lateral masses of C1. Degenerative changes in the periodontal C1 region. Multilevel marginal osteophyte formation and endplate sclerosis subchondral cyst formation and decreased intervertebral disc height C3 C7 pronounced at C5-6 and C6-7. There is vacuum phenomenon at C5-6, C6-7 and likely C4-5. Reverse curvature apex at C5. No gross malalignment between the facet joints or the vertebral bodies. C1 is intact. C2 is intact. C3 is intact. C4 is intact. C5 is intact. C6 is intact. C7 is intact. No prevertebral compartment hematoma. Calcified plaques in the carotic arteries. The thyroid gland is not enlarged. Tympanic cavities are aerated. Poor pneumatization of the mastoid air cells. Calcified plaques in the cavernous segments of the ICA. CT/CT cervical spine wo IV con IMPRESSION: Multilevel cervical spondylosis C3 C7 without acute fracture or trauma-related listhesis. Fleischner guidelines were followed. Electronically signed by: Jeison Carlton MD 04/07/2025 11:43 AM EDT
--- NOTE | ~2025-04-05 | CT_ITS ---
EXAMINATION: CT HEAD WITHOUT CONTRAST CLINICAL INFORMATION: fall on thinners/anticoagulant therapy COMPARISON: None available. TECHNIQUE: Contiguous axial imaging was performed from the skull base to vertex without intravenous administration of contrast. This CT examination was performed using dose optimization techniques as appropriate, variously including the following: *Automated exposure control *Adjustment of mA and/or kV according to patient size (this includes techniques or standardized protocols for targeted exams where dose is matched to indication/reason for exam; i.e. extremities or head) *Use of iterative reconstruction technique DLP: 656 mGY*cm FINDINGS: There is no acute ischemic change. There is no intracranial hemorrhage. There is no mass-effect or midline shift. Basal cisterns and ventricles are within normal limits for age/cerebral volume. Orbits are symmetrical and unremarkable. Paranasal sinuses and mastoid air cells are pneumatized. There are no bony abnormalities. CT/CT head/brain wo IV con IMPRESSION: No acute intracranial abnormality. Electronically signed by: Rogelio Turcios MD 04/05/2025 04:03 PM EDT
[2025-04-05 10:09] VITALS: BP 129/72; PULSE 65; RESP 18; TEMP 36.8; O2SAT 97; BMI 25.1
--- NOTE | 2025-04-05 10:13 | ED_ITS ---
HPI - General Adult General Chief complaint: Back Pain/Injury Stated complaint: back inj from ceiling falling in, eye inj? Time Seen by Provider: 04/05/25 11:25 Source: patient Mode of arrival: ambulatory Limitations: no limitations History of Present Illness ED Provider: Lali Aleman PA-C HPI narrative: Patient is a 69 year old assigned male at with a history of COPD, HTN, cardiac stents, on anti-coagulation presenting to the emergency department today with bilateral eye pain and low back pain. Patient states that early this morning a drop ceiling fell onto him and he fell out of bed, injuring his back and his eyes feel as though they are itchy. Patient states that he has known back issues. Patient denies any loss of consciousness with the incident. Patient denies any other complaints at this time. Related Data Home Medications ?Medication ?Instructions ?Recorded ?Confirmed amlodipine 10 mg tablet 10 mg PO DAILY 08/28/23 apixaban 5 mg tablet (Eliquis) 5 mg PO BID 08/28/23 hydrochlorothiazide 25 mg tablet 25 mg PO DAILY metoprolol succinate 25 mg 25 mg PO DAILY 08/28/23 tablet,extended release 24 hr umeclidinium 62.5 mcg-vilanterol 1 ea inhalation DAILY 08/28/23 25 mcg/actuation powdr for inhalation (Anoro Ellipta) Previous Rx's ?Medication ?Instructions ?Recorded erythromycin 5 mg/gram (0.5 %) eye 0.5 inch ophthalmic (eye) Q4H #3.5 04/05/25 ointment grams Allergies Allergy/AdvReac Type Severity Reaction Status Date / Time No Known Allergies Allergy Verified 04/05/25 10:11 Review of Systems Constitutional: Constitutional: Reports as per HPI Eyes: Eyes: Reports as per HPI ENT: Reports as per HPI Cardiovascular: Cardiovascular: Reports as per HPI Respiratory: Respiratory: Reports as per HPI Gastrointestinal: Gastrointestinal: Reports as per HPI Genitourinary: Genitourinary: Reports as per HPI Musculoskeletal: Musculoskeletal: Reports as per HPI Integumentary/Breasts: Skin/Breast: Reports as per HPI Neurologic: Reports as per HPI Psychiatric: Psychiatric: Reports as per HPI Endocrine: Endocrine: Reports as per HPI Hematologic/Lymphatic: Hematologic/Lymphatic: Reports as per HPI Allergic/Immunologic: Allergic/Immunologic: Reports as per HPI [facility] Past Medical History Attestation statement: The following information was validated with the patient. Source: old records reviewed and nursing notes reviewed Social History Social History Patient Tobacco Use Status: Current everyday Tobacco user Cigarettes Per Day: 3 Advance Directives: No Advance Directives Information Provided: Yes Do you have a plan to hurt others: No Plan Physical Exam ED Vital Signs: Vital Signs - 24 hr 04/05/25 10:09 04/05/25 12:10 04/05/25 14:22 Temperature 98.3 F 97.1 F Pulse Rate 65 57 54 Respiratory Rate 18 15 16 Blood Pressure 129/72 129/77 128/79 Pulse Oximetry 97 99 98 Oxygen Delivery Method Room Air Room Air Room Air 04/05/25 16:30 04/05/25 16:34 Temperature 98.3 F 98.3 F Pulse Rate 56 56 Respiratory Rate 16 16 Blood Pressure 146/71 H 146/71 H Pulse Oximetry 96 96 Oxygen Delivery Method Room Air Room Air BMI result Body Mass Index 25.1 Const General: cooperative, no acute distress, alert and awake Nutritional Appearance: well nourished Orientation/consciousness: patient oriented x3 HENMT Head: Yes normal to inspection and Yes atraumatic Ears: hearing grossly normal bilaterally and external ears normal General nose exam: Normal external nose present, no nasal discharge noted and no epistaxis Face and sinus: Yes normal facial exam, No abrasion and No laceration Mouth: Normal oral and palatal mucosa present, no drooling and no muffled voice Eyes Conjunctivae: conjunctival abnormal left conjunctival injection diffuse Pupils: Equal, round and reactive pupils present EOM: EOMs intact bilaterally Neck Neck: Yes normal visual inspection and Yes full ROM Resp Effort & Inspection: normal respiratory effort and able to speak in complete sentences Neuro General: patient oriented x3, moves all extremities and CN's II-XI intact bilaterally Cranial nerves: Yes Equal, round and reactive pupils present Cognition (Neuro): normal cognition Extrem General: Yes normal to inspection, Yes full ROM and Yes capillary refill normal Psych Appearance: grossly normal Mental Status: mental status grossly normal Affect: normal affect Attitude: cooperative Thought process: Normal thought process present Thought content: Normal thought content present Insight: Good insight present (Psych) Course Course Course Narrative: This is a Rapid Medical Examination (RME) performed by Rich Fernández PA-C in triage. Full HPI, ROS, assessment and treatment plan per primary provider in the Main ED. Hx: 69 yo M hx HTN s/p cardiac stent on eliquis here for eval - reports drop ceiling fell last night, causing him to fall out of bed on his right side. no head strike or LOC. reports low back pain. reports FB sensation to L eye. no pain. Plan: imaging, fluorescein/tetracaine/visual acuity Medications Administered Discontinued Medications Generic Name Dose Route Start Last Admin Trade Name Maru PRN Reason Stop Dose Admin Fluorescein Sodium 1 strip 04/05/25 10:10 04/05/25 12:04 Fluorescein Sodium Strip EYE-LEFT 04/05/25 10:11 Not Given ONCE ONE Tetracaine HCl 1 drop 04/05/25 10:10 04/05/25 12:04 Tetracaine Hcl/Pf 0.5% Oph Carmen 4 Ml Drops EYE-LEFT 04/05/25 10:11 Not Given ONCE ONE Medical Decision Making Medical Decision Making MDM Narrative: Patient is a 69 year old assigned male at with a history of COPD, HTN, cardiac stents, on anti-coagulation presenting to the emergency department today with bilateral eye pain and low back pain. Patient's physical exam was as noted in the physical exam portion of this note. Patient's lumbar x-ray showed evidence of chronic degenerative changes. Patient's CT head and c-spine were unremarkable. Patient's clinical presentation is most consistent with acute back pain in the setting of chronic back pain and acute corneal abrasion of the left eye. I explained my physical exam findings as well as all test results to the patient. I answered all questions asked by the patient. I stressed the importance of the patient taking his medication as directed (either prescribed or as the over the counter packaging recommends). I stressed the importance of the patient following up with his primary care provider. I stressed the importance of the patient returning to the emergency department immediately if his symptoms were to worsen or if he were to develop any dizziness, shortness of breath, difficulty breathing, chest pain, blurry vision, loss of vision, nausea, vomiting, abdominal pain, fever, chills, back pain, or any other complaints. Patient verbalized agreement and understanding with this treatment plan and discharge. Differential Diagnosis Differential Diagnoses: The differential diagnosis associated with the presentation includes Corneal abrasion Back pain Admission/Observation Consideration of admission/observation: Escalation of care including admission/observation considered Patient would have been admitted to the hospital had his work up had any findings where hospital admission was appropriate and his clinical presentation warranted hospital admission. Independent Interpretation I performed an independent interpretation of an: CT Scan Interpretation: My interpretation is in agreement with the radiologist's impression of these imaging studies. Report Number: [id number]: Total DLP = 0.00 mGy-cm Reason for Exam: fall on thinners EXAMINATION: CT HEAD WITHOUT CONTRAST CLINICAL INFORMATION: fall on thinners/anticoagulant therapy COMPARISON: None available. TECHNIQUE: Contiguous axial imaging was performed from the skull base to vertex without intravenous administration of contrast. This CT examination was performed using dose optimization techniques as appropriate, variously including the following: *Automated exposure control *Adjustment of mA and/or kV according to patient size (this includes techniques or standardized protocols for targeted exams where dose is to indication/reason for exam; i.e. extremities or head) *Use of iterative reconstruction technique DLP: 656 mGY*cm FINDINGS: There is no acute ischemic change. There is no intracranial hemorrhage. There is no mass-effect or midline shift. Basal cisterns and ventricles are within normal limits for age/cerebral volume. Orbits are symmetrical and unremarkable. Paranasal sinuses and mastoid air cells are pneumatized. There are no bony abnormalities. CT/CT head/brain wo IV con IMPRESSION: No acute intracranial abnormality. Electronically signed by: Rogelio Turcios MD 04/05/2025 04:03 PM EDT Dictated By: Rogelio Turcios MD Signed By: Electronically signed by Rogelio Turcios MD 04/05/25 1603 Reason for Exam: fall out of bed low back pain EXAMINATION: XR LUMBOSACRAL SPINE CLINICAL INFORMATION: fall out of bed resulting in low back pain COMPARISON: None available. TECHNIQUE: Three views of the lumbosacral spine. FINDINGS: Mild atherosclerotic ossifications are present in the aorta. Mild degenerative changes are present in the right greater than left SI joints. There are 5 nonrib-bearing lumbar segments. L4-5 demonstrates grade 1 anterolisthesis and moderate disc space narrowing and facet sclerosis. L5-S1 demonstrates mild disc space narrowing and mild facet sclerosis. Vertebral body height and alignment is preserved otherwise. XR/XR lumbar spine 2-3V IMPRESSION: Grade 1 anterolisthesis at L4-5 with moderate degenerative disc disease and facet osteoarthritis. L5-S1 demonstrates mild degenerative disc disease and facet osteoarthritis. Electronically signed by: Rogelio Turcios MD 04/05/2025 10:43 AM EDT Dictated By: Rogelio Turcios MD Signed By: Electronically signed by Rogelio Turcios MD 04/05/25 1043 Reason for Exam: fall out of bed EXAMINATION: CT CERVICAL SPINE WITHOUT CONTRAST CLINICAL INFORMATION: Status post fall. COMPARISON: None available. TECHNIQUE: Contiguous axial images through the cervical spine using 3 mm collimation with bone and soft tissue algorithm. Sagittal and coronal reformatted images acquired. DLP: 383.[address] examination was performed using dose optimization techniques as appropriate, variously including the following: *Automated exposure control *Adjustment of mA and/or kV according to patient size (this includes techniques or standardized protocols for targeted exams where dose is matched to indication/reason for exam; i.e. extremities or head) *Use of iterative reconstruction technique FINDINGS: Craniocervical junction is intact with normal alignment within the occipital condyles and lateral masses of C1. Degenerative changes in the periodontal C1 region. Multilevel marginal osteophyte formation and endplate sclerosis subchondral cyst formation and decreased intervertebral disc height C3 C7 pronounced at C5-6 and C6-7. There is vacuum phenomenon at C5-6, C6-7 and likely C4-5. Reverse curvature apex at C5. No gross malalignment between the facet joints or the vertebral bodies. C1 is intact. C2 is intact. C3 is intact. C4 is intact. C5 is intact. C6 is intact. C7 is intact. No prevertebral compartment hematoma. Calcified plaques in the carotic arteries. The thyroid gland is not enlarged. Tympanic cavities are aerated. Poor pneumatization of the mastoid air cells. Calcified plaques in the cavernous segments of the ICA. CT/CT cervical spine wo IV con IMPRESSION: Multilevel cervical spondylosis C3 C7 without acute fracture or trauma-related listhesis. Fleischner guidelines were followed. Electronically signed by: Jeison Carlton MD 04/07/2025 11:43 AM EDT RP Dictated By: Jeison Redd MD Signed By: Electronically signed by Jeison Garner MD 04/07/25 1143 Radiology Impression Discussion of test interpretation with radiology: I have reviewed the radiologist's reading. Prescription Management I considered prescription management with: Antibiotic (patient prescribed an antibiotic for his corneal abrasion) Discharge Plan Discharge Clinical Impression: Abrasion, corneal, Acute on chronic back pain Patient Disposition: Home, Self-Care Instructions: Corneal Abrasion (DC) Additional Instructions: Use your ointment as prescribed. IF you are prescribed home medications and/or you are taking over the counter medications at home - it is very important you continue to do so as prescribed / directed unless told otherwise. Follow up with your primary care provider. Return to the emergency department immediately if your symptoms worsen or if you develop any numbness, tingling, dizziness, shortness of breath, difficulty breathing, chest pain, blurry vision, loss of vision, nausea, vomiting, abdominal pain, fever, chills, back pain, or any other complaints. Please see the information below about our Patient Portal. If you are not yet enrolled in the [facility] Patient Portal, you will receive an enrollment email invitation following your visit to any [facility] setting. You may also self-enroll in the Patient Portal by visiting our website: [email or web address] The following information is required to access the Patient Portal: - Your [facility] Medical Record Number - Your personal home email address (must match what is in your electronic medical record, Registration staff can assist with this) - Name - Date of Capabilities of the Patient Portal: - Message some providers - View upcoming appointments - Access your health summary, medical history, and visit history - View current conditions and allergies - View procedure and lab results - View your medications, including guidelines, side effects, and precautions - Complete pre-appointment questionnaires requested by your provider - Ready summary reports of your office visits and procedures To access the Patient Portal Mobile Yvan, follow these directions: - Search [facility] in the Yvan Store or [employer] Store - Download the Yvan - Search for [facility] - Enter your login/password Prescriptions: New erythromycin 5 mg/gram (0.5 %) ointment 0.5 inch ophthalmic (eye) Q4H Qty: 3.5 0RF No Action Anoro Ellipta 62.5-25 mcg/actuation blister with device 1 ea inhalation DAILY Eliquis 5 mg tablet 5 mg PO BID metoprolol succinate 25 mg tablet extended release 24 hr 25 mg PO DAILY amlodipine 10 mg tablet 10 mg PO DAILY hydrochlorothiazide 25 mg tablet 25 mg PO DAILY Referrals: Pierce Parada MD [Primary Care Provider, Family Practice] Interventions: ED Discharge Assessment Last Done: 04/05/25 16:34 Discharge Date/Time: 04/05/25 16:36 Print Language: Armenian
[2025-04-05 12:10] VITALS: BP 129/77; PULSE 57; RESP 15; TEMP 36.2; O2SAT 99
[2025-04-05 14:22] VITALS: BP 128/79; PULSE 54; RESP 16; O2SAT 98
--- OUTSIDE RECORDS SUMMARY | 2025-04-05 15:11 | XMS_ITS | Clinical Summary ---
Author Organization [employer] Address [address] [place] [address] Care Team Providers Care Sample Coordinator Name Role Phone Unavailable Primary Care Provider Unavailabl e Encounters Date Type Department Care Team Description 03/31/2025 Patient Outreach [facility] [address] [place] [phone] Truman Storm Recovery Supports 03/10/2025 Patient Outreach [address] [address] Willian Bess Recovery Supports 02/24/2025 Patient Outreach [address] [address] Truman Storm Recovery Supports 01/13/2025 Patient Outreach [address] [phone] Truman Storm Recovery Supports from Last 3 Months Social [...] Vaccines (1 of 2) 2003 COVID-19 Vaccine (2023-2 5 season) 2025 Influenza Vaccine (#1) 2025 RSV Patients and Pa tients Aged [...]
--- OUTSIDE RECORDS SUMMARY | 2025-04-05 15:11 | XMS_ITS | Encounter Summary ---
Author Organization [employer] Address [address] [facility] [address] [place] [address] Care Team Providers Care Occupational Therapy Supervisor Name Role Phone Unavailable Primary Care Provider Unavailabl e Reason for Visit * Reason Comments [facility] Recovery Supports Encounter Details Date Type Department Care Team (Late st Contact Info) Description 03/31/2025 Patient Outreach [facility] [address] [place] [address] Truman Storm Recovery Supports Social History Tobacco Use Types Packs/Day Years Used Date Smoking Tobacco: Never Assessed Sex and Gender Information Value Date Recorded Sex Assigned at Male 12/15/2023 3:08 PM EDT Legal Sex Male 3:07 PM EDT Gender Identity Male 12/15/2023 3:08 PM EDT Sexual Orientation Not on file documented as of this encounter Progress Notes * Truman Storm - 03/31/2025 2:37 PM EDT I met with Sunil today. Setting: in person at [facility] Recovery Wellness Goals worked on: Social Stability Action taken/next steps: Attended alcohol and drug free activity Additional comments: Truman Storm documented in this encounter Plan of Treatment Not on file documented as of this encounter Visit Diagnoses Not on filedocumented in this encounter
[2025-04-05 16:30] VITALS: BP 146/71; PULSE 56; RESP 16; TEMP 36.8; O2SAT 96
[2025-04-05 16:34] VITALS: BP 146/71; PULSE 56; RESP 16; TEMP 36.8; O2SAT 96
== END 2025-04-05 16:36 | disposition home or self-care (01) ==
PROVIDERS: Emergency Provider Emergency Medicine Emergency Medical Services; PCP Family Medicine
DX: S05.00XA Injury of conjunctiva and corneal abrasion without foreign body, unspecified eye, initial encounter (principal); X58.XXXA Exposure to other specified factors, initial encounter; Y93.9 Activity, unspecified; Y92.9 Unspecified place or not applicable; Y99.9 Unspecified external cause status; M54.50 Low back pain, unspecified; H57.13 Ocular pain, bilateral; I10 Essential (primary) hypertension; J44.9 Chronic obstructive pulmonary disease, unspecified; Z79.01 Long term (current) use of anticoagulants; Z79.899 Other long term (current) drug therapy
CPT/HCPCS: 70450; 72100; 72125; 99284

== ENCOUNTER → 2025-04-05 10:10 | Outpatient (BNV) | payer MEDICARE, MEDICAID, SELFPAY | PROVIDERS: PCP Family Medicine; Visit Provider Radiology Diagnostic Radiology | DX: M47.812 Spondylosis without myelopathy or radiculopathy, cervical region (principal); W06.XXXA Fall from bed, initial encounter | CPT/HCPCS: 72125 ==